=== PATIENT | male | born 1970 | race Caucasian/White ===

== ENCOUNTER 2017-06-18 18:11 | Emergency (ER) | payer OTHER, SELFPAY ==
[~2017-06-18] VITALS: Ht 177.8 cm; Wt 90.9 kg
[~2017-06-18 18:11] MED LIST: CLOP75 PO; CYCL10 PO; ESOM20CA31 PO; FENO160 PO; METF500T4 PO; METO100XL PO; NIAC500T76 PO; OMEP20 PO; PROM25 PO; SIMV-261 PO; TRAM50TA4 PO
[2017-06-18 18:37] LABS: GLUCOSE,POINT OF CARE 123 MG/DL (70-110)
[2017-06-18] MEDS ORDERED: ACETAMINOPHEN/CODEINE 300-30 MG TABLET PO ONE (21:00)
[2017-06-18 22:05] VITALS: BP 150/85
== END 2017-06-18 23:05 | disposition home or self-care (01) ==
LOC: EMS 18:12
DX: S60.111A Contusion of right thumb with damage to nail, initial encounter (principal); E11.9 Type 2 diabetes mellitus without complications; I10 Essential (primary) hypertension; W23.0XXA Caught, crushed, jammed, or pinched between moving objects, initial encounter; Y93.89 Activity, other specified; Y92.810 Car as the place of occurrence of the external cause; Y99.8 Other external cause status
CPT/HCPCS: 11740; 82962; 99284

== ENCOUNTER 2017-07-28 10:44 | Emergency (ER) | payer OTHER ==
[~2017-07-28] VITALS: Ht 177.8 cm; Wt 95.5 kg
[2017-07-28 11:02] LABS: GLUCOSE,POINT OF CARE 200 MG/DL (70-110)
[2017-07-28 12:03] VITALS: BP 176/101
[2017-07-28] MEDS ORDERED: HYDROCODONE/ACETAMINOPHEN 5-325 MG TABLET PO ONE (12:45)
== END 2017-07-28 13:21 | disposition home or self-care (01) ==
LOC: EMS 10:46
DX: S61.211A Laceration without foreign body of left index finger without damage to nail, initial encounter (principal); E11.9 Type 2 diabetes mellitus without complications; I10 Essential (primary) hypertension; F17.210 Nicotine dependence, cigarettes, uncomplicated; W27.8XXA Contact with other nonpowered hand tool, initial encounter; Y93.89 Activity, other specified; Y92.89 Other specified places as the place of occurrence of the external cause; Y99.8 Other external cause status
CPT/HCPCS: 12001; 82962; 99283

== ENCOUNTER 2017-08-13 14:44 | Emergency (ER) | payer OTHER ==
[~2017-08-13] VITALS: Ht 177.8 cm; Wt 100.0 kg
[2017-08-13] MEDS ORDERED: HYDR-3709 PO (14:50)
[2017-08-13 14:55] LABS: GLUCOSE,POINT OF CARE 158 MG/DL (70-110)
[2017-08-13 16:24] LABS: BASOPHILS % (AUTO) 0.5 % (0.0-2.0); EOSINOPHILS % (AUTO) 1.3 % (1.0-6.0); HEMATOCRIT 36.6 % (41-53); HEMOGLOBIN 11.5 g/dL (13.5-17.5); LYMPHOCYTES # (AUTO) 3.1 K/uL (1.0-4.8); LYMPHOCYTES % (AUTO) 19.2 % (22.0-44.0); MEAN CORPUSCULAR HEMOGLOBIN 21.1 pg (26.0-34.0); MEAN CORPUSCULAR HGB CONC 31.3 G/dL (31.0-37.0); MEAN CORPUSCULAR VOLUME 67 fL (80-100); MONOCYTES # (AUTO) 0.8 K/uL (0.1-1.0); MONOCYTES % (AUTO) 5.2 % (2.0-9.0); NEUTROPHILS # (AUTO) 11.9 K/uL (1.8-7.7); NEUTROPHILS % (AUTO) 73.8 % (40.0-70.0); PLATELET COUNT (AUTO) 283 K/uL (150-450); RED BLOOD CELL COUNT(AUTO) 5.42 MIL/uL (4.50-5.90); RED CELL DISTRIBUTION WIDTH 17.4 % (11.5-14.5)
[2017-08-13 16:33] LABS: APPEARANCE,URINE CLEAR (CLEAR); BILIRUBIN,URINE NEGATIVE (NEGATIVE); GLUCOSE, URINE (UA) NEGATIVE (NEGATIVE); KETONES,URINE NEGATIVE (NEGATIVE); LEUKOCYTE ESTERASE ,URINE NEGATIVE (NEGATIVE); NITRATE,URINE NEGATIVE (NEGATIVE); OCCULT BLOOD,URINE NEGATIVE (NEGATIVE); PH,URINE 6.5 (5.0-8.0); PROTEIN,URINE NEGATIVE (NEGATIVE); UROBILINOGEN,URINE 0.2 mg/dL (<=1.0)
[2017-08-13 16:36] LABS: INR 0.9 (0.9-1.1); PROTHROMBIN TIME 9.9 SEC (9.4-11.6)
[2017-08-13 16:37] LABS: ANION GAP 9 mmol/L (8-16); CALCIUM, TOTAL 8.4 mg/dL (8.8-10.5); CARBON DIOXIDE 29 mmol/L (22-29); CHLORIDE 100 mmol/L (98-107); CREATININE 0.95 mg/dL (0.60-1.30); GLOMERULAR FILTR. RATE CALC > 60 mL/min (>60); GLUCOSE,RANDOM 155 mg/dL (70-110); POTASSIUM 4.3 mmol/L (3.5-5.1); SODIUM SERUM 138 mmol/L (136-145); UREA NITROGEN, BLOOD 18 mg/dL (7-18)
[2017-08-13 16:38] LABS: AMPHET/METH SCREEN,URINE NEGATIVE (NEGATIVE); BARBITURATE SCREEN, URINE NEGATIVE (NEGATIVE); BENZODIAZEPINES SCREEN,URINE NEGATIVE (NEGATIVE); CANNABINOID SCREEN,URINE NEGATIVE (NEGATIVE); COCAINE SCREEN,URINE NEGATIVE (NEGATIVE); METHADONE SCREEN, URINE NEGATIVE (NEGATIVE); OPIATE SCREEN,URINE POSITIVE (NEGATIVE)
[2017-08-13 16:44] LABS: PHENCYCLIDINE SCREEN,URINE NEGATIVE (NEGATIVE)
[2017-08-13 16:45] LABS: ALANINE AMINOTRANSFERASE 20 U/L (12-78); ALBUMIN 3.3 g/dL (3.4-5.0); ALKALINE PHOSPHATASE 58 U/L (46-116); ASPARTATE AMINOTRANSFERASE 12 U/L (15-37); BILIRUBIN,TOTAL 0.2 mg/dL (0.1-1.0); TOTAL PROTEIN, SERUM 6.4 g/dL (6.4-8.2)
[2017-08-13 17:34] LABS: B-TYPE NATRIURETIC PEPTIDE 110 pg/mL (0-100)
[2017-08-13 17:51] VITALS: BP 145/90
== END 2017-08-13 18:09 | disposition home or self-care (01) ==
LOC: EMS 14:45
DX: E11.649 Type 2 diabetes mellitus with hypoglycemia without coma (principal); M54.5 Low back pain; M79.604 Pain in right leg; M79.605 Pain in left leg; G89.29 Other chronic pain; F17.210 Nicotine dependence, cigarettes, uncomplicated
CPT/HCPCS: 82962; 93005; 99285; 99406

== ENCOUNTER 2018-06-17 16:33 | Emergency (ER) | payer OTHER ==
[~2018-06-17] VITALS: Ht 177.8 cm; Wt 100.0 kg
[~2018-06-17 16:33] MED LIST changes: +HYDR-3709 PO; +METF-960 PO; -METF500T4 PO; -PROM25 PO; -TRAM50TA4 PO
[2018-06-17 16:36] VITALS: BP 185/113
== END 2018-06-17 20:30 | disposition left against medical advice (07) ==
LOC: EMS 16:34
DX: E16.2 Hypoglycemia, unspecified (principal); Z53.21 Procedure and treatment not carried out due to patient leaving prior to being seen by health care provider